=== PATIENT | male | born 1965 | race Caucasian/White ===

== ENCOUNTER 2018-07-30 18:07 | Inpatient (IN) | payer MEDICAID, OTHER ==
--- NOTE | 2018-07-30 18:57 | ED PDOC ---
HPI: Skin/Bite Injury Time Seen by Provider: 07/30/18 18:31 Chief Complaint (Nursing): Abnormal Skin Integrity Chief Complaint (Provider): Gluteal mass History Per: Patient Additional Complaint(s): 53 yo male, no PMH, presents to ED for evaluation of rectal and right buttocks pain x 2 days, associated with fever. Pt reports pain developed 2 days ago, noted upon defecation. Past Medical History Reviewed: Nursing Documentation, Vital Signs Vital Signs: Last Vital Signs Temp 98.8 F 07/30/18 18:10 Pulse 120 H 07/30/18 18:10 Resp 16 07/30/18 18:10 BP 143/91 H 07/30/18 18:10 Pulse Ox 98 07/30/18 18:59 - Medical History PMH: No Chronic Diseases - Surgical History Surgical History: No Surg Hx - Family History Family History: States: No Known Family Hx - Living Arrangements Living Arrangements: With Family - Social History Current smoker - smoking cessation education provided: No Alcohol: None Drugs: Denies - Home Medications Home Medications: Ambulatory Orders Medication Instructions Recorded Azithromycin 250 mg PO DAILY #6 tab 11/13/15 Famotidine [Pepcid] 20 mg PO DAILY PRN #6 tab 11/23/15 Ibuprofen [Motrin] 600 mg PO Q8 PRN #6 tab 11/23/15 - Allergies Allergies/Adverse Reactions: Allergies Allergy/AdvReac Type Severity Reaction Status Date / Time PORK Allergy RASH Verified 07/30/18 18:10 Review of Systems ROS Statement: Except As Marked, All Systems Reviewed And Found Negative Genitourinary Male: Positive for: Other (rectal pain) Physical Exam - Reviewed Nursing Documentation Reviewed: Yes Vital Signs Reviewed: Yes - Physical Exam Appears: Positive for: Well, Non-toxic, No Acute Distress Head Exam: Positive for: ATRAUMATIC, NORMAL INSPECTION, NORMOCEPHALIC Skin: Positive for: Normal Color, Warm, DRY Eye Exam: Positive for: EOMI, Normal appearance, PERRL ENT: Positive for: Normal ENT Inspection Neck: Positive for: Normal, Painless ROM Cardiovascular/Chest: Positive for: Regular Rate, Rhythm Respiratory: Positive for: CNT, Normal Breath Sounds Gastrointestinal/Abdominal: Positive for: Normal Exam, Soft Back: Positive for: Normal Inspection Rectal: Positive for: Tenderness (R gluteal tenderness, mild erythema, no flutuance noted. ) Extremity: Positive for: Normal ROM Neurologic/Psych: Positive for: Alert, Oriented - Laboratory Results Result Diagrams: 07/30/18 19:24 07/30/18 19:24 - ECG O2 Sat by Pulse Oximetry: 98 Medical Decision Making Medical Decision Making: IV access established and treatment initiated with Toradol and IVF Diagnostics ordered WBC resulted 14.9 IV Vacno and Zosyn ordered case endorsed to SAMARIA Bills at [address] results Disposition - Clinical Impression Clinical Impression: Gluteal abscess - Patient ED Disposition Is Patient to be Admitted: Transfer of Care - Disposition Disposition: Transfer of Care Disposition Time: 20:02 Condition: STABLE Forms: [facility] (Nepali)
[2018-07-30 19:29] LABS: BASO % 0.3 % (0.0-2.0); EOS # 0.1 K/uL (0.0-0.7); EOS % 0.5 % (0.0-4.0); HEMOGLOBIN 14.4 g/dL (12.0-18.0); LYMPH # 1.4 K/uL (1.0-4.3); LYMPH % 9.6 % (20.0-40.0); MEAN CELL VOLUME 81.8 fl (80.0-94.0); MEAN CORPUSCULAR HEMOGLOBIN 27.3 pg (27.0-31.0); MEAN CORPUSCULAR HGB CONC 33.4 g/dL (33.0-37.0); MEAN PLATELET VOLUME 8.9 fl (7.2-11.7); MONO # 0.8 K/uL (0.0-0.8); MONO % 5.6 % (0.0-10.0); NEUT # 12.5 K/uL (1.8-7.0); NRBC % 0.1 % (0.0-0.0); PLATELET COUNT 207 K/uL (130-400); RBC 5.28 Mil/uL (4.40-5.90); WHITE BLOOD COUNT 14.9 K/uL (4.8-10.8)
[2018-07-30 19:38] LABS: URINE BILIRUBIN NEGATIVE (NEGATIVE); URINE BLOOD NEGATIVE (NEGATIVE); URINE CLARITY CLEAR (Clear); URINE COLOR YELLOW (YELLOW); URINE GLUCOSE (UA) >=500 mg/dL (Normal); URINE LEUKOCYTE ESTERASE NEG Leu/uL (Negative); URINE PROTEIN 30 mg/dL (NEGATIVE)
[2018-07-30 19:48] LABS: ALB/GLOB RATIO 1.1 (1.0-2.1); BLOOD UREA NITROGEN 15 mg/dl (9-20); CALCIUM 8.9 mg/dL (8.4-10.2); GFR NON-AFRICAN AMERICAN > 60
[2018-07-30 19:54] LABS: ALT/SGPT 23 U/L (21-72); AST/SGOT 24 U/L (17-59)
[2018-07-30] MEDS ORDERED: Piperacillin/Tazobact 3.375 GM in Sodium Chloride 0.9% 100 ML IV STA (20:01)
[2018-07-30] MEDS ORDERED: Piperacillin/Tazobact 3.375 gm Inj IVPB ONE (20:25)
[2018-07-30 20:34] LABS: VENOUS BLOOD GAS BASE EXCESS -0.1 mmol/L (0.0-2.0); VENOUS BLOOD GAS PCO2 36 mmHg (40-60); VENOUS BLOOD GAS PO2 31 mm/Hg (30-55); VENOUS BLOOD PH 7.43 (7.32-7.43)
[2018-07-30] MEDS ORDERED: Sodium Chloride 0.9% 50 ML IV ONE (20:35)
[2018-07-30] MEDS ORDERED: Iohexol 300 100 ML IJ ONE (20:35)
[2018-07-30 20:53] LABS: BANDS 4 % (0-2); HYPOCHROMIC SLIGHT; LYMPHOCYTE 17 % (20-50); MICROCYTOSIS SLIGHT; MONOCYTE 6 % (0-10); NEUTROPHIL 73 % (42-75); PLATELET ESTIMATE NORMAL (NORMAL); TOTAL CELLS COUNTED 100
[2018-07-30 20:54] LABS: SMUDGE CELLS PRESENT
--- NOTE | 2018-07-30 21:35 | ED PDOC ---
- Laboratory Results Result Diagrams: 07/30/18 19:24 07/30/18 19:24 - ECG ECG: Positive for: Viewed By Me (reviewed by ED attending) ECG Rhythm: Positive for: Sinus Rhythm O2 Sat by Pulse Oximetry: 98 - Radiology X-Ray: Viewed By Me X-Ray Interpretation: No Acute Disease, Cardiomegaly - Progress ED Course And Treament: Case endorsed to fiction and nonfiction writer prose from [facility] pending labs, CT Addendum created by Isaac Cunningham MD on 07/30/2018 9:38 PM Eastern Time ([place] & [place]) As stated in the report, the foreign body is long and slender suggests a thin nail or dense object. As stated in the report, the foreign body is 3 cm in length and approximately 2.5 mm at the widest but does taper to a thinner diameter laterally. Initial Report created on 07/30/2018 9:26 PM Eastern Time ([place] & [place]) EXAM: CT Abdomen and Pelvis With Intravenous Contrast EXAM DATE/TIME: 07/30/2018 6:54 PM CLINICAL HISTORY: 53 years old, male; Signs and symptoms; Other: RT buutock swelling; Additional info: R gluteal abscess TECHNIQUE: Axial computed tomography images of the abdomen and pelvis with intravenous contrast. All CT scans at this facility use at least one of these dose optimization techniques: automated exposure control; mA and/or kV adjustment per patient size (includes targeted exams where dose is matched to clinical indication); or iterative reconstruction. Coronal and sagittal reformatted images were created and reviewed. CONTRAST: 95 ml of [id number] administered intravenously. COMPARISON: No relevant prior studies available. FINDINGS: Lower thorax: No acute findings. ABDOMEN: Liver: Normal. No mass. Gallbladder and bile ducts: The gallbladder is contracted with no stones. Pancreas: Normal. No ductal dilation. Spleen: Normal. No splenomegaly. Adrenals: Normal. No mass. Kidneys and ureters: Normal. No hydronephrosis. Stomach and bowel: Normal. No obstruction. No mucosal thickening. Appendix: A normal appendix is seen. PELVIS: Bladder: Small fat filled bilateral inguinal hernias with urinary bladder protruding toward the orifice of the left Reproductive: Unremarkable as visualized. ABDOMEN and PELVIS: Intraperitoneal space: Normal. No free air. No significant fluid collection. Bones/joints: No acute fracture. No dislocation. Soft tissues: Pockets of gas with soft tissue confluence and surrounding induration in the medial right buttocks consistent with site of developing abscess without a mature wall at this time. Centered in this, there is a linear radiopaque foreign body which measures approximately 3.0 cm in length and is approximately 2.5 mm in diameter. The area of developing abscess measures approximately 4.1 x 3.0 x 3.7 cm. Vasculature: Normal. No abdominal aortic aneurysm. Lymph nodes: Numerous small periaortic retroperitoneal nodes which are upper normal. Small bilateral external iliac nodes which aren't borderline and right greater than left measuring up to 18 x 10 x 21 mm. IMPRESSION: 1. Site of developing abscess in the medial right buttocks lateral and caudal to the right ischial tuberosity. No mature wall is evident at this time and only surrounding subcutaneous induration is noted. Centrally, there is a linear radiopaque foreign body measuring approximately 3.0 cm length approximately 2.5 mm in diameter although appears to taper to a thinner diameter at the lateral aspect. 2. Small bilateral inguinal hernias. 3. Borderline right external iliac adenopathy. There are some left external iliac nodes which are within normal limits and upper normal periaortic retroperitoneal nodes in the abdomen. Case discussed with Dr. Tena, neurosurgical nurse on-call, regarding consult. Recommends warm compress application in ED Case discussed with Dr. Eid, hospitalist on-call, for admission Disposition - Clinical Impression Clinical Impression: Cellulitis of right buttock, Foreign body (FB) in soft tissue, Hyperglycemia, Sepsis - POA Present On Arrival: None - Disposition Disposition: Admitted as In-Patient Disposition Time: 21:54 Condition: FAIR
[2018-07-30] MEDS ORDERED: Vancomycin 1 g Inj ONE (22:19)
--- NOTE | 2018-07-30 22:49 | CP.PCM.HP ---
History of Present Illness - History of Present Illness History of Present Illness: CC: Right buttock pain HPI: 53 y/o man w/ no pmh presents for right buttock pain. Patient reports pain started yesterday, sharp in nature, non-radiating, w/ minimal relief w/ motrin. Patient reports burning bowel movement the previous day which he thought was a hemorrhoid, but burning went away. Patient reports associated fever of 100.4F but denies trauma, fall, chest pain, SOB, abdominal pain, nausea , vomiting, diarrhea, or dysuria. ED course: vitals: 101.6F, 104 beats/min, 137/68 mm Hg, resp 18, O2 98% room air CBC: 14.9>14.4/43.2<207 CMP: 136/4.0, 100/28, 15/0.9, glucose 212, AST 24, ALT 23, alk phos 56 VBG: pO2 31, pH 7.43, pCO2 36, HCO3 23.9, lactate 1.8 UA: glucose >500, trace ketones, neg nitrates and neg leukocyte esterase CXR: no active disease process CT abdomen/pelvis: (vrads) Site of developing abscess in the medial right buttocks lateral and caudal to the right ischial tuberosity. No mature wall is evident at this time and only surrounding subcutaneous induration is noted. Centrally, there is a linear radiopaque foreign body measuring approximately 3.0 cm length approximately 2.5 mm in diameter although appears to taper to a thinner diameter at the lateral aspect. Small bilateral inguinal hernias. Borderline right external iliac adenopathy. There are some left external iliac nodes which are within normal limits and upper normal periaortic retroperitoneal nodes in the abdomen. Tylenol 975 mg PO once Toradol 30 mg IV once Vancomycin 1 gm IV Zosyn 3,375 gm IV PMD: none PMH: none meds: none allergies: pork PSH: none Fam: mother and father have HTN, DM2 SOC: denies smoking, alcohol, and drugs ROS: 12 points assessed and negative unless otherwise reported in HPI Present on Admission - Present on Admission Any Indicators Present on Admission: No History of DVT/PE: No History of Uncontrolled Diabetes: No Urinary Catheter: No Decubitus Ulcer Present: No Review of Systems - Review of Systems All systems: reviewed and no additional remarkable complaints except - Constitutional Constitutional: As Per HPI, Fever, Headache. absent: Chills - EENT Eyes: absent: Change in Vision - Cardiovascular Cardiovascular: absent: Chest Pain - Respiratory Respiratory: absent: Cough, Dyspnea - Gastrointestinal Gastrointestinal: absent: Abdominal Pain, Diarrhea, Hematochezia, Melena, Nausea , Vomiting - Genitourinary Genitourinary: absent: Dysuria - Integumentary Integumentary: As Per HPI - Neurological Neurological: absent: Dizziness, Numbness, Headaches Past Patient History - Past Social History Alcohol: None Drugs: Denies - PSYCHIATRIC Hx Substance Use: No - SURGICAL HISTORY Hx Surgeries: No - ANESTHESIA Hx Anesthesia: No Meds Allergies/Adverse Reactions: Allergies Allergy/AdvReac Type Severity Reaction Status Date / Time PORK Allergy RASH Verified 07/30/18 18:10 Physical Exam - Constitutional Appears: Non-toxic, No Acute Distress - Head Exam Head Exam: ATRAUMATIC, NORMAL INSPECTION, NORMOCEPHALIC - Eye Exam Eye Exam: EOMI, Normal appearance, PERRL - ENT Exam ENT Exam: Mucous Membranes Moist - Neck Exam Neck exam: Positive for: Full Rom. Negative for: Tenderness - Respiratory Exam Respiratory Exam: Clear to Auscultation Bilateral. absent: Decreased Breath Sounds, Rales, Rhonchi, Wheezes, Respiratory Distress - Cardiovascular Exam Cardiovascular Exam: REGULAR RHYTHM, RRR. absent: Tachycardia - GI/Abdominal Exam GI & Abdominal Exam: Normal Bowel Sounds, Soft. absent: Distended, Tenderness - Rectal Exam Additional comments: indurated, warm, erythematous, tender lower right buttock, no drainage, left side normal - Extremities Exam Extremities exam: Positive for: normal inspection. Negative for: calf tenderness, pedal edema, tenderness - Neurological Exam Neurological exam: Alert, Oriented x3 - Skin Skin Exam: Dry, Normal Color, Warm Results - Vital Signs Recent Vital Signs: Last Vital Signs Temp 101.6 F H 07/30/18 21:09 Pulse 104 H 07/30/18 20:38 Resp 18 07/30/18 20:38 BP 137/68 07/30/18 20:38 Pulse Ox 98 07/30/18 22:33 - Labs Result Diagrams: 07/30/18 19:24 07/30/18 19:24 Labs: Laboratory Results - last 24 hr 07/30/18 07/30/18 07/30/18 19:24 19:24 19:24 WBC 14.9 H D RBC 5.28 Hgb 14.4 Hct 43.2 MCV 81.8 D MCH 27.3 MCHC 33.4 RDW 14.0 Plt Count 207 MPV 8.9 Neut % (Auto) 84.0 H Lymph % (Auto) 9.6 L [place] % (Auto) 5.6 Eos % (Auto) 0.5 Baso % (Auto) 0.3 Neut # (Auto) 12.5 H Lymph # (Auto) 1.4 [place] # (Auto) 0.8 Eos # (Auto) 0.1 Baso # (Auto) 0.0 Neutrophils % (Manual) 73 Band Neutrophils % 4 H Lymphocytes % (Manual) 17 L Monocytes % (Manual) 6 Smudge Cells Present Platelet Estimate Normal Hypochromasia (manual) Slight Microcytosis (manual) Slight pO2 VBG pH VBG pCO2 VBG HCO3 VBG Total CO2 VBG O2 Sat (Calc) VBG Base Excess VBG Potassium Glucose Lactate FiO2 Sodium 136 Potassium 4.0 Chloride 100 Carbon Dioxide 28 Anion Gap 12 BUN 15 Creatinine 0.9 Est GFR ( Amer) > 60 Est GFR (Non-Af Amer) > 60 Random Glucose 212 H Calcium 8.9 Total Bilirubin 0.7 AST 24 ALT 23 Alkaline Phosphatase 56 Total Protein 7.6 Albumin 4.0 Globulin 3.6 Albumin/Globulin Ratio 1.1 Venous Blood Potassium Urine Color Yellow Urine Clarity Clear Urine pH 6.0 Ur Specific [place] 1.026 Urine Protein 30 Urine Glucose (UA) >=500 Urine Ketones Trace Urine Blood Negative Urine Nitrate Negative Urine Bilirubin Negative Urine Urobilinogen 2.0 Ur Leukocyte Esterase Neg Urine RBC (Auto) 3 Urine Microscopic WBC 1 07/30/18 20:30 WBC RBC Hgb Hct MCV MCH MCHC RDW Plt Count MPV Neut % (Auto) Lymph % (Auto) [place] % (Auto) Eos % (Auto) Baso % (Auto) Neut # (Auto) Lymph # (Auto) [place] # (Auto) Eos # (Auto) Baso # (Auto) Neutrophils % (Manual) Band Neutrophils % Lymphocytes % (Manual) Monocytes % (Manual) Smudge Cells Platelet Estimate Hypochromasia (manual) Microcytosis (manual) pO2 31 VBG pH 7.43 VBG pCO2 36 L VBG HCO3 23.9 VBG Total CO2 25.0 VBG O2 Sat (Calc) 70.4 H VBG Base Excess -0.1 L VBG Potassium 3.6 Glucose 212 H Lactate 1.8 FiO2 21.0 Sodium 131.0 L Potassium Chloride 101.0 Carbon Dioxide Anion Gap BUN Creatinine Est GFR ( Amer) Est GFR (Non-Af Amer) Random Glucose Calcium Total Bilirubin AST ALT Alkaline Phosphatase Total Protein Albumin Globulin Albumin/Globulin Ratio Venous Blood Potassium 3.6 Urine Color Urine Clarity Urine pH Ur Specific [place] Urine Protein Urine Glucose (UA) Urine Ketones Urine Blood Urine Nitrate Urine Bilirubin Urine Urobilinogen Ur Leukocyte Esterase Urine RBC (Auto) Urine Microscopic WBC Assessment & Plan (1) Cellulitis of right buttock Status: Acute (2) Sepsis Status: Acute - Assessment and Plan (Free Text) Assessment: 53 y/o man w/ no pmh presents for right buttock pain Plan: Right buttock pain - most likely due to developing abscess of lower right buttock - febirle, tachycardic, normotensive - 101.6F, 104 beats/min, 137/68 mm Hg, resp 18, O2 98% room air - CBC: 14.9>14.4/43.2<207 - CMP: 136/4.0, 100/28, 15/0.9, glucose 212, AST 24, ALT 23, alk phos 56 - VBG: pO2 31, pH 7.43, pCO2 36, HCO3 23.9, lactate 1.8 - UA: glucose >500, trace ketones, neg nitrates and neg leukocyte esterase - CXR: no active disease process - CT abdomen/pelvis: (vrads) Site of developing abscess in the medial right buttocks lateral and caudal to the right ischial tuberosity. No mature wall is evident at this time and only surrounding subcutaneous induration is noted. Centrally, there is a linear radiopaque foreign body measuring approximately 3.0 cm length approximately 2.5 mm in diameter although appears to taper to a thinner diameter at the lateral aspect. Small bilateral inguinal hernias. Borderline right external iliac adenopathy. There are some left external iliac nodes which are within normal limits and upper normal periaortic retroperitoneal nodes in the abdomen. - surgery consult ordered - Tylenol 975 mg PO once - Toradol 30 mg IV once - Vancomycin 1 gm IV - Zosyn 3,375 gm IV - c/w vancomycin 1 gm IV Q12h - c/w zosyn 3.375 gm IV Q8h - tylenol for mild pain - motrin for moderate pain - toradol for severe pain - admit to Med/Surg - monitor for acute changes Sepsis - patient meets sepsis criteria; febrile, tachycardic, WBC 14.9, source of infection - normotensive - monitor for acute changes Prophylactic measures -DVT: lovenox 40 mg SC daily
--- NOTE | 2018-07-30 22:53 | CP.PCM.CON ---
History of Present Illness - History of Present Illness History of Present Illness: GENERAL SURGERY CONSULT NOTE FOR DR. CLARKE 53yo M with PMHx of hemorrhoids presents to the ED with right buttock pain and swelling for 2 days. Two days ago, he was attempting to have a BM when he began having rectal burning. The next day, he noticed swelling in the right buttock area near the rectum but the rectal burning resolved. Pt reports fevers for about 3 days along with GODINEZ. He is having normal BMs, last was today. Denies diarrhea. No recent bloody stools. Did have small amount of blood in stool several months ago. Never had a colonoscopy. Pt states that he does not follow up with a doctor. In the ED, pt found to be febrile with leukocytosis and CT showed developing abscess with linear foreign body in the right soraida-rectal area. Pt states that he has never injected himself in the buttock area, never put anything in his rectum besides the suppository, never had any trauma to the area , never had any surgery in the area. When asked about IM medications in the buttock, pt states that 14 years ago, he had vaccinations in the buttock in his home country of [place]. PMHx: states has high BP but not high enough to require medication Surgeries: none Allergies: pork Medications: occasional suppository for hemorrhoids, pt unsure of name Social history: denies etoh, illicit drug use or tobacco use Review of Systems - Review of Systems All systems: reviewed and no additional remarkable complaints except (as per HPI ) Past Patient History - Past Social History Alcohol: None Drugs: Denies - PSYCHIATRIC Hx Substance Use: No - SURGICAL HISTORY Hx Surgeries: No - ANESTHESIA Hx Anesthesia: No Meds Home Medications: Home Medication List Medication Instructions Recorded Confirmed Type Amoxicillin/Clavulanate [Augmentin 1 tab PO Q12H #14 tab 08/02/18 Rx 875 MG-125 MG] Clindamycin [Cleocin] 300 mg PO Q8H #21 cap 08/02/18 Rx Ibuprofen [Motrin Tab] 600 mg PO Q6H PRN #20 tab 08/02/18 Rx metFORMIN [glucOPHAGE] 500 mg PO BID #60 tab 08/02/18 Rx Allergies/Adverse Reactions: Allergies Allergy/AdvReac Type Severity Reaction Status Date / Time PORK Allergy RASH Verified 07/30/18 18:10 - Medications Medications: Current Medications Acetaminophen (Tylenol 325mg Tab) 650 mg PO Q6 PRN PRN Reason: Pain, Mild (1-3) Acetaminophen (Tylenol 325mg Tab) 650 mg PO Q6 PRN PRN Reason: Fever >100.4 F Enoxaparin Sodium (Lovenox) 40 mg SC DAILY FLORIAN PRN Reason: Protocol Vancomycin HCl 1 gm/ Sodium (Chloride) 250 mls @ 166.667 mls/hr IVPB Q12 FLORIAN PRN Reason: Protocol Piperacillin Sod/Tazobactam (Sod 3.375 gm/ Sodium Chloride) 100 mls @ 100 mls/ hr IVPB Q8 FLORIAN PRN Reason: Protocol Ibuprofen (Motrin Tab) 600 mg PO Q6H PRN PRN Reason: Pain, moderate (4-7) Physical Exam - Constitutional Appears: Well, Non-toxic, No Acute Distress - Head Exam Head Exam: ATRAUMATIC, NORMAL INSPECTION - Eye Exam Eye Exam: EOMI, Normal appearance - Respiratory Exam Respiratory Exam: NORMAL BREATHING PATTERN. absent: Respiratory Distress - Cardiovascular Exam Cardiovascular Exam: +S1, +S2 - GI/Abdominal Exam GI & Abdominal Exam: Soft. absent: Distended, Firm, Guarding, Rebound, Rigid, Tenderness - Rectal Exam Rectal Exam: Deferred (deferred due to foreign body/possible needle in soraida- rectal area) Additional comments: Right soraida-rectal area: some induration, no fluctuance, no erythema, no drainage , no crepitus, very mild tenderness to area - Neurological Exam Neurological exam: Alert, CN II-XII Intact, Oriented x3 - Psychiatric Exam Psychiatric exam: Normal Affect, Normal Mood - Skin Skin Exam: Dry, Warm Results - Vital Signs Recent Vital Signs: Last Vital Signs Temp 99.0 F 07/30/18 22:09 Pulse 104 H 07/30/18 20:38 Resp 18 07/30/18 20:38 BP 137/68 07/30/18 20:38 Pulse Ox 98 07/30/18 22:33 - Labs Result Diagrams: 08/02/18 04:00 08/02/18 05:50 Labs: Laboratory Results - last 24 hr 07/30/18 07/30/18 07/30/18 19:24 19:24 19:24 WBC 14.9 H D RBC 5.28 Hgb 14.4 Hct 43.2 MCV 81.8 D MCH 27.3 MCHC 33.4 RDW 14.0 Plt Count 207 MPV 8.9 Neut % (Auto) 84.0 H Lymph % (Auto) 9.[address] [facility] % (Auto) 5.6 Eos % (Auto) 0.5 Baso % (Auto) 0.3 Neut # (Auto) 12.5 H Lymph # (Auto) 1.4 [facility] # (Auto) 0.8 Eos # (Auto) 0.1 Baso # (Auto) 0.0 Neutrophils % (Manual) 73 Band Neutrophils % 4 H Lymphocytes % (Manual) 17 L Monocytes % (Manual) 6 Smudge Cells Present Platelet Estimate Normal Hypochromasia (manual) Slight Microcytosis (manual) Slight pO2 VBG pH VBG pCO2 VBG HCO3 VBG Total CO2 VBG O2 Sat (Calc) VBG Base Excess VBG Potassium Glucose Lactate FiO2 Sodium 136 Potassium 4.0 Chloride 100 Carbon Dioxide 28 Anion Gap 12 BUN 15 Creatinine 0.9 Est GFR ( Amer) > 60 Est GFR (Non-Af Amer) > 60 Random Glucose 212 H Calcium 8.9 Total Bilirubin 0.7 AST 24 ALT 23 Alkaline Phosphatase 56 Total Protein 7.6 Albumin 4.0 Globulin 3.6 Albumin/Globulin Ratio 1.1 Venous Blood Potassium Urine Color Yellow Urine Clarity Clear Urine pH 6.0 Ur Specific [place] 1.026 Urine Protein 30 Urine Glucose (UA) >=500 Urine Ketones Trace Urine Blood Negative Urine Nitrate Negative Urine Bilirubin Negative Urine Urobilinogen 2.0 Ur Leukocyte Esterase Neg Urine RBC (Auto) 3 Urine Microscopic WBC 1 07/30/18 20:30 WBC RBC Hgb Hct MCV MCH MCHC RDW Plt Count MPV Neut % (Auto) Lymph % (Auto) [facility] % (Auto) Eos % (Auto) Baso % (Auto) Neut # (Auto) Lymph # (Auto) [facility] # (Auto) Eos # (Auto) Baso # (Auto) Neutrophils % (Manual) Band Neutrophils % Lymphocytes % (Manual) Monocytes % (Manual) Smudge Cells Platelet Estimate Hypochromasia (manual) Microcytosis (manual) pO2 31 VBG pH 7.43 VBG pCO2 36 L VBG HCO3 23.9 VBG Total CO2 25.0 VBG O2 Sat (Calc) 70.4 H VBG Base Excess -0.1 L VBG Potassium 3.6 Glucose 212 H Lactate 1.8 FiO2 21.0 Sodium 131.0 L Potassium Chloride 101.0 Carbon Dioxide Anion Gap BUN Creatinine Est GFR ( Amer) Est GFR (Non-Af Amer) Random Glucose Calcium Total Bilirubin AST ALT Alkaline Phosphatase Total Protein Albumin Globulin Albumin/Globulin Ratio Venous Blood Potassium 3.6 Urine Color Urine Clarity Urine pH Ur Specific [place] Urine Protein Urine Glucose (UA) Urine Ketones Urine Blood Urine Nitrate Urine Bilirubin Urine Urobilinogen Ur Leukocyte Esterase Urine RBC (Auto) Urine Microscopic WBC Assessment & Plan - Assessment and Plan (Free Text) Assessment: 53yo M with PMHx of hemorrhoids presents with right buttock pain and found to have developing abscess with linear foreign body in the right soraida-rectal area. - Febrile 101.6 - Leukocytosis 14.9 - Hyperglycemia - CT: Site of developing abscess in the medial right buttocks lateral and caudal to the right ischial tuberosity. No mature wall is evident at this time and only surrounding subcutaneous induration is noted. Centrally, there is a linear radiopaque foreign body measuring ~3.0 cm length x ~2.5 mm in diameter although appears to taper to a thinner diameter at the lateral aspect. Small bilateral inguinal hernias. - IV Antibiotics - Warm compresses to indurated area - Possible I&D - NPO past midnight in case OR - Discussed plan with Dr. Colin Tena PGY-4
[2018-07-31] MEDS ORDERED: Pneumococcal 23-Valent Vaccine IM ONE (00:06)
[2018-07-31] MEDS: Piperacillin/Tazobact 3.375 GM in Sodium Chloride 0.9% 100 ML IVPB SCH ×3 (01:09→16:42)
[2018-07-31] MEDS: Sodium Chloride 0.9% 1,000 ML IV SCH ×4 (01:12→23:00)
[2018-07-31 06:38] LABS: BASO # 0.1 K/uL (0.0-0.2); BASO % 0.3 % (0.0-2.0); EOS # 0.2 K/uL (0.0-0.7); EOS % 1.2 % (0.0-4.0); HEMOGLOBIN 14.1 g/dL (12.0-18.0); LYMPH # 1.8 K/uL (1.0-4.3); LYMPH % 10.4 % (20.0-40.0); MEAN CELL VOLUME 82.3 fl (80.0-94.0); MEAN CORPUSCULAR HEMOGLOBIN 27.5 pg (27.0-31.0); MEAN CORPUSCULAR HGB CONC 33.4 g/dL (33.0-37.0); MEAN PLATELET VOLUME 8.2 fl (7.2-11.7); MONO # 1.4 K/uL (0.0-0.8); MONO % 7.9 % (0.0-10.0); NEUT # 13.7 K/uL (1.8-7.0); NEUT % 80.2 % (50.0-75.0); RBC 5.13 Mil/uL (4.40-5.90); RED CELL DISTRIBUTION WIDTH 13.7 % (11.5-14.5); WHITE BLOOD COUNT 17.1 K/uL (4.8-10.8)
[2018-07-31 07:05] LABS: ALBUMIN 3.4 g/dL (3.5-5.0); ALT/SGPT 24 U/L (21-72); AST/SGOT 17 U/L (17-59); BLOOD UREA NITROGEN 11 mg/dl (9-20); CALCIUM 8.7 mg/dL (8.4-10.2); GFR NON-AFRICAN AMERICAN > 60
--- NOTE | 2018-07-31 07:43 | CARD ---
APPROVED REPORT Date of service: 07/30/2018 EKG Measurement Heart [id number] <Conclusion> Normal sinus rhythm Voltage criteria for left ventricular hypertrophy Nonspecific T wave abnormality Abnormal ECG
[2018-07-31] MEDS ORDERED: Enoxaparin 40 mg Syringe SC SCH (09:00)
--- NOTE | 2018-07-31 09:27 | CT ---
Date of service: 07/30/2018 PROCEDURE: CT Abdomen and Pelvis with contrast HISTORY: R gluteal abscess COMPARISON: None. TECHNIQUE: Contrast dose: 95 mL of Omnipaque 300 Radiation dose: Total exam DLP = 681 mGy-cm. This CT exam was performed using one or more of the following dose reduction techniques: Automated exposure control, adjustment of the mA and/or kV according to patient size, and/or use of iterative reconstruction technique. FINDINGS: LOWER THORAX: Unremarkable. LIVER: Unremarkable. No gross lesion or ductal dilatation. GALLBLADDER AND BILE DUCTS: Unremarkable. PANCREAS: Unremarkable. No gross lesion or ductal dilatation. SPLEEN: Unremarkable. ADRENALS: Unremarkable. No mass. KIDNEYS AND URETERS: Unremarkable. No hydronephrosis. No solid mass. VASCULATURE: Unremarkable. No aortic aneurysm. BOWEL: Unremarkable. No obstruction. No gross mural thickening. APPENDIX: Normal appendix. PERITONEUM: Unremarkable. No free fluid. No free air. LYMPH NODES: A right groin normal size asymmetrical lymph node nonspecific is present. No enlarged lymph nodes. BLADDER: Unremarkable. REPRODUCTIVE: Unremarkable. BONES: No acute fracture. OTHER FINDINGS: In the medial right buttocks, there is mixture of gas and fluid and surrounding fat induration compatible with a developing abscess here. Within this collection a thin linear radiopaque foreign body approximately 3 cm in length and 1 mm in width is noted. The entire collection is approximately 4 cm in rounded diameter. Is at the level of the ischial tuberosities. No contiguous osseous involvement noted. No gross mature wall to it noted IMPRESSION: Medial right buttock developing abscess with foreign body-as detailed above. Follow-up recommended. Concordant results (preliminary interpretation) provided by [employer].
--- NOTE | 2018-07-31 10:18 | CP.PCM.PN ---
Subjective - Date & Time of Evaluation Date of Evaluation: 07/31/18 Time of Evaluation: 08:00 - Subjective Subjective: Pt is seen and examined at bed side with Dr Mendoza. Pt slept well, with no acute event overnight. Pt state that he had a fever but feel improved. He state pain is controlled with medication but chore tender to palpate or when he sit on toilet. Pt denies any n/v SOB, chest pain, abd pain, dysuria, polyuria, Diarrhea or constipation. Objective - Vital Signs/Intake and Output Vital Signs (last 24 hours): Temp Pulse Resp BP Pulse Ox 97.8 F 88 18 106/71 98 07/31/18 08:39 07/31/18 08:39 07/31/18 08:39 07/31/18 08:39 07/31/18 08:39 - Medications Medications: Current Medications Acetaminophen (Tylenol 325mg Tab) 650 mg PO Q6 PRN PRN Reason: Pain, Mild (1-3) Last Admin: 07/31/18 06:17 Dose: 650 mg Acetaminophen (Tylenol 325mg Tab) 650 mg PO Q6 PRN PRN Reason: Fever >100.4 F Docusate Sodium (Colace) 100 mg PO BID [facility] Last Admin: 07/31/18 09:41 Dose: 100 mg Enoxaparin Sodium (Lovenox) 40 mg SC DAILY [facility] PRN Reason: Protocol Vancomycin HCl 1 gm/ Sodium (Chloride) 250 mls @ 166.667 mls/hr IVPB Q12 [facility] PRN Reason: Protocol Piperacillin Sod/Tazobactam (Sod 3.375 gm/ Sodium Chloride) 100 mls @ 100 mls/ hr IVPB Q8 [facility] PRN Reason: Protocol Last Admin: 07/31/18 09:32 Dose: 100 mls/hr Sodium Chloride (Sodium Chloride 0.9%) 1,000 mls @ 125 mls/hr IV .Q8H [facility] Last Admin: 07/31/18 01:12 Dose: 125 mls/hr Ibuprofen (Motrin Tab) 600 mg PO Q6H PRN PRN Reason: Pain, moderate (4-7) Last Admin: 07/31/18 01:11 Dose: 600 mg Ketorolac Tromethamine (Toradol) 30 mg IVP Q6 PRN PRN Reason: Pain, severe (8-10) Last Admin: 07/31/18 09:33 Dose: 30 mg Sennosides (Senokot Tab) 8.6 mg PO HS [facility] - Labs Labs: 07/31/18 05:30 07/31/18 05:30 - Constitutional Appears: Well, Non-toxic, No Acute Distress - Head Exam Head Exam: ATRAUMATIC, NORMAL INSPECTION, NORMOCEPHALIC - Eye Exam Eye Exam: EOMI, Normal appearance, PERRL Pupil Exam: NORMAL ACCOMODATION, PERRL - ENT Exam ENT Exam: Mucous Membranes Moist, Normal Exam - Neck Exam Neck Exam: Full ROM, Normal Inspection - Respiratory Exam Respiratory Exam: Clear to Ausculation Bilateral, NORMAL BREATHING PATTERN - Cardiovascular Exam Cardiovascular Exam: REGULAR RHYTHM, +S1, +S2 - GI/Abdominal Exam GI & Abdominal Exam: Soft, Normal Bowel Sounds - Rectal Exam Additional comments: skin Induration was noted on Right buttock with warm and tenderness. - Extremities Exam Extremities Exam: Full ROM, Normal Capillary Refill, Normal Inspection - Back Exam Back Exam: NORMAL INSPECTION. absent: CVA tenderness (L), CVA tenderness (R) - Neurological Exam Neurological Exam: Alert, Awake Assessment and Plan - Assessment and Plan (Free Text) Assessment: Pt is a 53 yo male with No PMH presented with buttock pain, was admitted for drainage of abscess. Cellulites /Abscess on Right buttock Pt complain of buttock pain Ct scan demonstrate an abscess with foraging body Skin induration plus tenderness noted upon palpation of the area Vitals noted for Fevers and tackycardia Plan NPO I&D by surgery continue Abx Vanco + Zosyn IV Acetomenophine PRN fever Motrin PRN pain moderate ketorolac PRn Sever pain F/U vitals follow up after surgeon recommendation Sepsis Pt have Fever + tachycardia and source of infection Plan Continue abx Monitor vitals Continue Iv fluid Monitor for any acute changes Uncontrolled DM Pt glucose level 212->169 Plan Will order H1AC DVT prophylaxis Lovenox 40
--- NOTE | 2018-07-31 10:32 | RAD ---
Date of service: 07/30/2018 HISTORY: admit COMPARISON: No prior. FINDINGS: LUNGS: The lungs are well inflated and clear. PLEURA: No significant pleural effusion identified, no pneumothorax apparent. CARDIOVASCULAR: Normal. OSSEOUS STRUCTURES: No significant abnormalities. VISUALIZED UPPER ABDOMEN: Normal. OTHER FINDINGS: None. IMPRESSION: No acute findings.
[2018-07-31] MEDS ORDERED: Midazolam 2 MG/2 ML VIAL ONE (12:06)
[2018-07-31] MEDS ORDERED: ePHEDrine 50 mg/ml Inj ONE (12:06)
[2018-07-31] MEDS ORDERED: Propofol 10 mg/ml Inj (20 ML) ONE ×2 (12:06→14:10)
[2018-07-31] MEDS ORDERED: Succinylcholine 200 mg/10 ml Inj IV ONE (12:07)
[2018-07-31 12:14] LABS: INR 1.1; PROTHROMBIN TIME 12.4 Seconds (9.8-13.1)
[2018-07-31 12:16] LABS: PARTIAL THROMBOPLASTIN TIME 30.9 Seconds (25.6-37.1)
[2018-07-31] MEDS ORDERED: Ketamine 50 mg/ml Inj (10 ml) ONE (14:10)
[2018-07-31] MEDS ORDERED: Sodium Chloride 0.9% 10 ML IV ONE (14:14)
[2018-07-31] MEDS ORDERED: Oxycodone/Acetaminophen 5/325 mg Tab PO PRN (15:02)
--- NOTE | 2018-07-31 15:05 | PCM.SURG1 ---
Surgeon's Initial Post Op Note - Surgeon's Notes Surgeon: Dr. Shaw Library Circulation Clerk: Dr. Biggs PGY-3 Type of Anesthesia: IV Sedation Anesthesia Administered By: Dr. Pond Pre-Operative Diagnosis: R Gluteal Abscess Operative Findings: 20cc of purulent output expressed from abscess, no foreign body found Post-Operative Diagnosis: Same Operation Performed: Incision & Drainage of R gluteal abscess Specimen/Specimens Removed: none Estimated Blood Loss: EBL {In ML}: 5 Blood Products Given: N/A Drains Used: Stephanie Post-Op Condition: Good Date of Surgery/Procedure: 07/31/18 Time of Surgery/Procedure: 15:05
[2018-07-31] MEDS ORDERED: HYDROmorphone 0.5 mg/0.5 ml ISec IVP PRN (15:10)
[2018-08-01] MEDS: Piperacillin/Tazobact 3.375 GM in Sodium Chloride 0.9% 100 ML IVPB SCH ×3 (00:54→16:14)
--- NOTE | 2018-08-01 07:42 | CP.PCM.PN ---
Subjective - Date & Time of Evaluation Date of Evaluation: 08/01/18 Time of Evaluation: 07:20 - Subjective Subjective: General Surgery Pt Seen and examined. Febrile to 101.1 overnight. Feeling better today. No new complaints Objective - Vital Signs/Intake and Output Vital Signs (last 24 hours): Temp Pulse Resp BP Pulse Ox 99 F 102 H 18 112/60 98 07/31/18 23:50 07/31/18 23:50 07/31/18 23:50 07/31/18 23:50 07/31/18 23:50 - Medications Medications: Current Medications Acetaminophen (Tylenol 325mg Tab) 650 mg PO Q6 PRN PRN Reason: Pain, Mild (1-3) Last Admin: 07/31/18 16:38 Dose: 650 mg Acetaminophen (Tylenol 325mg Tab) 650 mg PO Q6 PRN PRN Reason: Fever >100.4 F Docusate Sodium (Colace) 100 mg PO BID [facility] Last Admin: 07/31/18 16:36 Dose: 100 mg Enoxaparin Sodium (Lovenox) 40 mg SC DAILY [facility] PRN Reason: Protocol Vancomycin HCl 1 gm/ Sodium (Chloride) 250 mls @ 166.667 mls/hr IVPB Q12 [facility] PRN Reason: Protocol Last Admin: 07/31/18 21:55 Dose: 166.667 mls/hr Piperacillin Sod/Tazobactam (Sod 3.375 gm/ Sodium Chloride) 100 mls @ 100 mls/ hr IVPB Q8 [facility] PRN Reason: Protocol Last Admin: 08/01/18 00:54 Dose: 100 mls/hr Sodium Chloride (Sodium Chloride 0.9%) 1,000 mls @ 125 mls/hr IV .Q8H [facility] Last Admin: 07/31/18 22:02 Dose: 125 mls/hr Ibuprofen (Motrin Tab) 600 mg PO Q6H PRN PRN Reason: Pain, moderate (4-7) Last Admin: 07/31/18 21:56 Dose: 600 mg Ketorolac Tromethamine (Toradol) 30 mg IVP Q6 PRN PRN Reason: Pain, severe (8-10) Last Admin: 07/31/18 09:33 Dose: 30 mg Oxycodone/Acetaminophen (Percocet 5/325 Mg Tab) 1 tab PO Q4 PRN PRN Reason: Pain, moderate (4-7) Stop: 08/03/18 15:03 Sennosides (Senokot Tab) 8.6 mg PO HS [facility] Last Admin: 07/31/18 22:01 Dose: Not Given - Labs Labs: 07/31/18 05:30 07/31/18 05:30 PT 12.4 Seconds (9.8-13.1) 07/31/18 12:01 INR 1.1 07/31/18 12:01 APTT 30.9 Seconds (25.6-37.1) 07/31/18 12:01 - Constitutional Appears: Non-toxic, No Acute Distress - Head Exam Head Exam: ATRAUMATIC, NORMOCEPHALIC - Eye Exam Eye Exam: EOMI. absent: Scleral icterus - Neck Exam Neck Exam: Full ROM. absent: Tenderness - Respiratory Exam Respiratory Exam: NORMAL BREATHING PATTERN. absent: Respiratory Distress - Cardiovascular Exam Cardiovascular Exam: Tachycardia, +S1, +S2 - GI/Abdominal Exam GI & Abdominal Exam: Soft. absent: Distended, Tenderness - Rectal Exam Additional comments: dressing with some spots of drainage, liz in place. - Extremities Exam Extremities Exam: absent: Calf Tenderness, Pedal Edema - Neurological Exam Neurological Exam: Alert, Awake, Oriented x3 - Skin Skin Exam: Dry, Warm Assessment and Plan - Assessment and Plan (Free Text) Assessment: 53M with R Gluteal Abscess, POD#1 s/p R Gluteal Abscess incision and drainage Plan: Drain to remain in place until it falls out or is removed by Dr. Shaw in the office in 1 week Need ID to recommend home antibiotics. F/U with a PMD for glucose monitoring and control. Will D/W Dr. Colin Rivera PGY4
[2018-08-01] MEDS: Enoxaparin 40 mg Syringe SC SCH (08:13)
[2018-08-01] MEDS: Sodium Chloride 0.9% 1,000 ML IV SCH ×3 (08:15→23:15)
[2018-08-01 09:13] LABS: BASO # 0.1 K/uL (0.0-0.2); BASO % 0.4 % (0.0-2.0); EOS # 0.2 K/uL (0.0-0.7); EOS % 1.8 % (0.0-4.0); HEMOGLOBIN 14.3 g/dL (12.0-18.0); LYMPH # 2.1 K/uL (1.0-4.3); LYMPH % 16.6 % (20.0-40.0); MEAN CELL VOLUME 81.6 fl (80.0-94.0); MEAN CORPUSCULAR HEMOGLOBIN 27.5 pg (27.0-31.0); MEAN CORPUSCULAR HGB CONC 33.7 g/dL (33.0-37.0); MONO # 0.8 K/uL (0.0-0.8); MONO % 6.5 % (0.0-10.0); NEUT # 9.3 K/uL (1.8-7.0); NEUT % 74.7 % (50.0-75.0); RBC 5.19 Mil/uL (4.40-5.90); RED CELL DISTRIBUTION WIDTH 14.1 % (11.5-14.5); WHITE BLOOD COUNT 12.5 K/uL (4.8-10.8)
--- NOTE | 2018-08-01 10:30 | CP.PCM.PN ---
<Alvaro Enciso - Last Filed: 08/01/18 11:28> Subjective - Date & Time of Evaluation Date of Evaluation: 08/01/18 Time of Evaluation: 07:00 - Subjective Subjective: Pt is seen and examined with Dr Resendiz. Pt improved significantly, He feel better and with no pain. Pt state that he had diarrhea yesterday but have improved. He have no complain as per today. He denies fever, chills, chest pain, sob, abd pain, dysuria or polyuria. Objective - Vital Signs/Intake and Output Vital Signs (last 24 hours): Temp Pulse Resp BP Pulse Ox 97.5 F L 79 20 119/74 100 08/01/18 08:01 08/01/18 08:01 08/01/18 08:01 08/01/18 08:01 08/01/18 08:01 - Medications Medications: Current Medications Acetaminophen (Tylenol 325mg Tab) 650 mg PO Q6 PRN PRN Reason: Pain, Mild (1-3) Last Admin: 07/31/18 16:38 Dose: 650 mg Acetaminophen (Tylenol 325mg Tab) 650 mg PO Q6 PRN PRN Reason: Fever >100.4 F Docusate Sodium (Colace) 100 mg PO BID [facility] Last Admin: 08/01/18 08:14 Dose: 100 mg Enoxaparin Sodium (Lovenox) 40 mg SC DAILY [facility] PRN Reason: Protocol Last Admin: 08/01/18 08:13 Dose: 40 mg Vancomycin HCl 1 gm/ Sodium (Chloride) 250 mls @ 166.667 mls/hr IVPB Q12 [facility] PRN Reason: Protocol Last Admin: 08/01/18 08:13 Dose: 166.667 mls/hr Piperacillin Sod/Tazobactam (Sod 3.375 gm/ Sodium Chloride) 100 mls @ 100 mls/ hr IVPB Q8 [facility] PRN Reason: Protocol Last Admin: 08/01/18 08:13 Dose: 100 mls/hr Sodium Chloride (Sodium Chloride 0.9%) 1,000 mls @ 125 mls/hr IV .Q8H [facility] Last Admin: 08/01/18 08:15 Dose: Not Given Ibuprofen (Motrin Tab) 600 mg PO Q6H PRN PRN Reason: Pain, moderate (4-7) Last Admin: 08/01/18 08:14 Dose: 600 mg Ketorolac Tromethamine (Toradol) 30 mg IVP Q6 PRN PRN Reason: Pain, severe (8-10) Last Admin: 07/31/18 09:33 Dose: 30 mg Oxycodone/Acetaminophen (Percocet 5/325 Mg Tab) 1 tab PO Q4 PRN PRN Reason: Pain, moderate (4-7) Stop: 08/03/18 15:03 Sennosides (Senokot Tab) 8.6 mg PO HS [facility] Last Admin: 07/31/18 22:01 Dose: Not Given - Labs Labs: 08/01/18 08:55 07/31/18 05:30 PT 12.4 Seconds (9.8-13.1) 07/31/18 12:01 INR 1.1 07/31/18 12:01 APTT 30.9 Seconds (25.6-37.1) 07/31/18 12:01 - Constitutional Appears: Well, Non-toxic, No Acute Distress - Head Exam Head Exam: ATRAUMATIC, NORMAL INSPECTION, NORMOCEPHALIC - Eye Exam Eye Exam: EOMI, Normal appearance, PERRL Pupil Exam: NORMAL ACCOMODATION, PERRL - ENT Exam ENT Exam: Mucous Membranes Moist, Normal Exam - Neck Exam Neck Exam: Full ROM, Normal Inspection - Respiratory Exam Respiratory Exam: Clear to Ausculation Bilateral, NORMAL BREATHING PATTERN - Cardiovascular Exam Cardiovascular Exam: REGULAR RHYTHM, +S1, +S2 - GI/Abdominal Exam GI & Abdominal Exam: Soft, Normal Bowel Sounds. absent: Tenderness - Extremities Exam Extremities Exam: Full ROM, Normal Capillary Refill, Normal Inspection. absent : Calf Tenderness - Back Exam Back Exam: Full ROM, NORMAL INSPECTION. absent: CVA tenderness (L), CVA tenderness (R) Additional comments: draining tube noted on Right gluteus with discharge bloody/ pus noted on pads. No odor noted, mild tender around the area, but no indurations - Neurological Exam Neurological Exam: Alert, Awake, Oriented x3 - Psychiatric Exam Psychiatric exam: Normal Affect, Normal Mood - Skin Skin Exam: Dry, Intact, Normal Color, Warm Assessment and Plan - Assessment and Plan (Free Text) Assessment: Pt is a 53 yo male with No PMH presented with buttock pain, was admitted for drainage of abscess. S/P I&D day 1 Cellulites /Abscess on Right buttock Pain improved I&D and still draining draining tube noted on the area Afebrile since 17:30 31/07. Vitals improved Plan continue Abx Vanco + Zosyn IV F/U culture Motrin PRN pain moderate ketorolac PRn Sever pain Monitor for fevers and vitals Sepsis Improved Afebrile since 17:30 31/07 Plan Continue abx Monitor vitals Continue Iv fluid Monitor for any acute changes Uncontrolled DM Pt glucose level 212->169 Plan H1AC 7.6 Slide scale Medium Hypoglycemic protocol DVT prophylaxis Lovenox 40 <Sue Resendiz - Last Filed: 08/01/18 17:23> Objective - Vital Signs/Intake and Output Vital Signs (last 24 hours): Temp Pulse Resp BP Pulse Ox 98 F 87 18 105/68 98 08/01/18 16:34 08/01/18 16:34 08/01/18 16:34 08/01/18 16:34 08/01/18 16:34 - Medications Medications: Current Medications Acetaminophen (Tylenol 325mg Tab) 650 mg PO Q6 PRN PRN Reason: Pain, Mild (1-3) Last Admin: 07/31/18 16:38 Dose: 650 mg Acetaminophen (Tylenol 325mg Tab) 650 mg PO Q6 PRN PRN Reason: Fever >100.4 F Docusate Sodium (Colace) 100 mg PO BID [facility] Last Admin: 08/01/18 16:15 Dose: 100 mg Enoxaparin Sodium (Lovenox) 40 mg SC DAILY [facility] PRN Reason: Protocol Last Admin: 08/01/18 08:13 Dose: 40 mg Vancomycin HCl 1 gm/ Sodium (Chloride) 250 mls @ 166.667 mls/hr IVPB Q12 [facility] PRN Reason: Protocol Last Admin: 08/01/18 08:13 Dose: 166.667 mls/hr Piperacillin Sod/Tazobactam (Sod 3.375 gm/ Sodium Chloride) 100 mls @ 100 mls/ hr IVPB Q8 [facility] PRN Reason: Protocol Last Admin: 08/01/18 16:14 Dose: 100 mls/hr Sodium Chloride (Sodium Chloride 0.9%) 1,000 mls @ 125 mls/hr IV .Q8H [facility] Last Admin: 08/01/18 16:15 Dose: Not Given Ibuprofen (Motrin Tab) 600 mg PO Q6H PRN PRN Reason: Pain, moderate (4-7) Last Admin: 08/01/18 14:37 Dose: 600 mg Insulin Human Regular (Humulin R) 0 units SC ACCU-CHECK [facility] PRN Reason: Protocol Last Admin: 08/01/18 16:15 Dose: 2 units Ketorolac Tromethamine (Toradol) 30 mg IVP Q6 PRN PRN Reason: Pain, severe (8-10) Last Admin: 07/31/18 09:33 Dose: 30 mg Oxycodone/Acetaminophen (Percocet 5/325 Mg Tab) 1 tab PO Q4 PRN PRN Reason: Pain, moderate (4-7) Stop: 08/03/18 15:03 Sennosides (Senokot Tab) 8.6 mg PO HS [facility] Last Admin: 07/31/18 22:01 Dose: Not Given - Labs Labs: 08/01/18 08:55 07/31/18 05:30 PT 12.4 Seconds (9.8-13.1) 07/31/18 12:01 INR 1.1 07/31/18 12:01 APTT 30.9 Seconds (25.6-37.1) 07/31/18 12:01 Attending/Attestation - Attestation I have personally seen and examined this patient.: Yes I have fully participated in the care of the patient.: Yes I have reviewed all pertinent clinical information, including history, physical exam and plan: Yes
[2018-08-01] MEDS: Insulin Regular 100 units/ml SC SCH ×3 (12:05→22:30)
[2018-08-01] MEDS ORDERED: Insulin Detemir 100 Units/ml Inj SC SCH (22:00)
[2018-08-02] MEDS: Piperacillin/Tazobact 3.375 GM in Sodium Chloride 0.9% 100 ML IVPB SCH ×2 (01:00→08:20)
[2018-08-02 06:25] LABS: HEMOGLOBIN 13.7 g/dL (12.0-18.0); MEAN CELL VOLUME 83.1 fl (80.0-94.0); MEAN CORPUSCULAR HGB CONC 32.5 g/dL (33.0-37.0); RBC 5.09 Mil/uL (4.40-5.90); WHITE BLOOD COUNT 7.6 K/uL (4.8-10.8)
[2018-08-02 06:36] LABS: BLOOD UREA NITROGEN 10 mg/dl (9-20); CALCIUM 8.6 mg/dL (8.4-10.2); GFR NON-AFRICAN AMERICAN > 60
[2018-08-02] MEDS: Insulin Regular 100 units/ml SC SCH (07:12)
[2018-08-02] MEDS: Sodium Chloride 0.9% 1,000 ML IV SCH (07:25)
[2018-08-02] MEDS: Enoxaparin 40 mg Syringe SC SCH (08:20)
--- NOTE | 2018-08-02 08:22 | CP.PCM.PN ---
Subjective - Date & Time of Evaluation Date of Evaluation: 08/02/18 Time of Evaluation: 08:20 - Subjective Subjective: Surgery: Dr. Shaw Pt seen and examined. No acute overnight events. Pt states he feels a lot better , and his pain has improved significantly. He is tolerating his diet, ambulating and having BMs. Denies fevers, chills. Objective - Vital Signs/Intake and Output Vital Signs (last 24 hours): Temp Pulse Resp BP Pulse Ox 98 F 72 19 105/67 99 08/02/18 00:07 08/02/18 00:07 08/02/18 00:07 08/02/18 00:07 08/02/18 00:07 - Medications Medications: Current Medications Acetaminophen (Tylenol 325mg Tab) 650 mg PO Q6 PRN PRN Reason: Pain, Mild (1-3) Last Admin: 07/31/18 16:38 Dose: 650 mg Acetaminophen (Tylenol 325mg Tab) 650 mg PO Q6 PRN PRN Reason: Fever >100.4 F Docusate Sodium (Colace) 100 mg PO BID [facility] Last Admin: 08/01/18 16:15 Dose: 100 mg Enoxaparin Sodium (Lovenox) 40 mg SC DAILY [facility] PRN Reason: Protocol Last Admin: 08/01/18 08:13 Dose: 40 mg Vancomycin HCl 1 gm/ Sodium (Chloride) 250 mls @ 166.667 mls/hr IVPB Q12 [facility] PRN Reason: Protocol Last Admin: 08/01/18 21:05 Dose: 166.667 mls/hr Piperacillin Sod/Tazobactam (Sod 3.375 gm/ Sodium Chloride) 100 mls @ 100 mls/ hr IVPB Q8 [facility] PRN Reason: Protocol Last Admin: 08/02/18 01:00 Dose: 100 mls/hr Sodium Chloride (Sodium Chloride 0.9%) 1,000 mls @ 125 mls/hr IV .Q8H [facility] Last Admin: 08/02/18 07:25 Dose: Not Given Ibuprofen (Motrin Tab) 600 mg PO Q6H PRN PRN Reason: Pain, moderate (4-7) Last Admin: 08/01/18 14:37 Dose: 600 mg Insulin Human Regular (Humulin R) 0 units SC ACCU-CHECK [facility] PRN Reason: Protocol Last Admin: 08/02/18 07:12 Dose: Not Given Ketorolac Tromethamine (Toradol) 30 mg IVP Q6 PRN PRN Reason: Pain, severe (8-10) Last Admin: 07/31/18 09:33 Dose: 30 mg Metformin HCl (Glucophage) 500 mg PO BID [facility] Oxycodone/Acetaminophen (Percocet 5/325 Mg Tab) 1 tab PO Q4 PRN PRN Reason: Pain, moderate (4-7) Stop: 08/03/18 15:03 Last Admin: 08/01/18 18:51 Dose: 1 tab Sennosides (Senokot Tab) 8.6 mg PO HS [facility] Last Admin: 08/01/18 21:04 Dose: 8.6 mg - Labs Labs: 08/02/18 04:00 08/02/18 05:50 PT 12.4 Seconds (9.8-13.1) 07/31/18 12:01 INR 1.1 07/31/18 12:01 APTT 30.9 Seconds (25.6-37.1) 07/31/18 12:01 - Constitutional Appears: Well, No Acute Distress - Head Exam Head Exam: ATRAUMATIC, NORMOCEPHALIC - ENT Exam ENT Exam: Mucous Membranes Moist - Respiratory Exam Respiratory Exam: NORMAL BREATHING PATTERN - Cardiovascular Exam Cardiovascular Exam: RRR - GI/Abdominal Exam GI & Abdominal Exam: Soft. absent: Tenderness - Neurological Exam Neurological Exam: Alert, Awake, Oriented x3 - Skin Skin Exam: Dry, Warm Assessment and Plan - Assessment and Plan (Free Text) Assessment: 53M s/p I&D of R gluteal abscess; POD#2 Plan: - ok to DC home with PO Augmentin for 7days - liz drain in the incision can be removed next week if it doesn't fall out on it's own - dressings PRN - d/w Dr. Colin Biggs
[2018-08-02 08:23] VITALS: BP 119/78; PULSE 73; RESP 20; TEMP 97.9; O2SAT 98
--- NOTE | 2018-08-02 09:09 | CP.PCM.DIS ---
<Remington ParrishsantosAlvaro - Last Filed: 08/02/18 16:08> Provider - Provider Date of Admission: 07/30/18 21:50 Attending physician: Aaron Eid MD Time Spent in preparation of Discharge (in minutes): 20 Hospital Course - Lab Results Lab Results: Micro Results 07/30/18 18:50 Blood Blood Culture - Preliminary NO GROWTH AFTER 48 HOURS Most Recent Lab Values WBC 7.6 K/uL (4.8-10.8) 08/02/18 04:00 RBC 5.09 Mil/uL (4.40-5.90) 08/02/18 04:00 Hgb 13.7 g/dL (12.0-18.0) 08/02/18 04:00 Hct 42.3 % (35.0-51.0) 08/02/18 04:00 MCV 83.1 fl (80.0-94.0) 08/02/18 04:00 MCH 27.0 pg (27.0-31.0) 08/02/18 04:00 MCHC 32.5 g/dL (33.0-37.0) L 08/02/18 04:00 RDW 14.0 % (11.5-14.5) 08/02/18 04:00 Plt Count 222 K/uL (130-400) 08/02/18 04:00 MPV 8.0 fl (7.2-11.7) 08/01/18 08:55 Neut % (Auto) 74.7 % (50.0-75.0) 08/01/18 08:55 Lymph % (Auto) 16.6 % (20.0-40.0) L 08/01/18 08:55 Robertson % (Auto) 6.5 % (0.0-10.0) 08/01/18 08:55 Eos % (Auto) 1.8 % (0.0-4.0) 08/01/18 08:55 Baso % (Auto) 0.4 % (0.0-2.0) 08/01/18 08:55 Neut # (Auto) 9.3 K/uL (1.8-7.0) H 08/01/18 08:55 Lymph # (Auto) 2.1 K/uL (1.0-4.3) 08/01/18 08:55 Robertson # (Auto) 0.8 K/uL (0.0-0.8) 08/01/18 08:55 Eos # (Auto) 0.2 K/uL (0.0-0.7) 08/01/18 08:55 Baso # (Auto) 0.1 K/uL (0.0-0.2) 08/01/18 08:55 Neutrophils % (Manual) 73 % (42-75) 07/30/18 19:24 Band Neutrophils % 4 % (0-2) H 07/30/18 19:24 Lymphocytes % (Manual) 17 % (20-50) L 07/30/18 19:24 Monocytes % (Manual) 6 % (0-10) 07/30/18 19:24 Smudge Cells Present 07/30/18 19:24 Platelet Estimate Normal (NORMAL) 07/30/18 19:24 Hypochromasia (manual) Slight 07/30/18 19:24 Microcytosis (manual) Slight 07/30/18 19:24 PT 12.4 Seconds (9.8-13.1) 07/31/18 12:01 INR 1.1 07/31/18 12:01 APTT 30.9 Seconds (25.6-37.1) 07/31/18 12:01 pO2 31 mm/Hg (30-55) 07/30/18 20:30 VBG pH 7.43 (7.32-7.43) 07/30/18 20:30 VBG pCO2 36 mmHg (40-60) L 07/30/18 20:30 VBG HCO3 23.9 mmol/L 07/30/18 20:30 VBG Total CO2 25.0 mmol/L (22-28) 07/30/18 20:30 VBG O2 Sat (Calc) 70.4 % (40-65) H 07/30/18 20:30 VBG Base Excess -0.1 mmol/L (0.0-2.0) L 07/30/18 20:30 VBG Potassium 3.6 mmol/L (3.6-5.2) 07/30/18 20:30 Sodium 131.0 mmol/L (132-148) L 07/30/18 20:30 Chloride 101.0 mmol/L (98-107) 07/30/18 20:30 Glucose 212 mg/dL (75-110) H 07/30/18 20:30 Lactate 1.8 mmol/L (0.7-2.1) 07/30/18 20:30 FiO2 21.0 % 07/30/18 20:30 Sodium 138 mmol/l (132-148) 08/02/18 05:50 Potassium 4.3 MMOL/L (3.6-5.0) 08/02/18 05:50 Chloride 107 mmol/L (98-107) 08/02/18 05:50 Carbon Dioxide 24 mmol/L (22-30) 08/02/18 05:50 Anion Gap 11 (10-20) 08/02/18 05:50 BUN 10 mg/dl (9-20) 08/02/18 05:50 Creatinine 0.7 mg/dl (0.8-1.5) L 08/02/18 05:50 Est GFR ( Amer) > 60 08/02/18 05:50 Est GFR (Non-Af Amer) > 60 08/02/18 05:50 POC Glucose (mg/dL) 143 mg/dL (65-110) H 08/02/18 05:21 Random Glucose 152 mg/dL (75-110) H 08/02/18 05:50 Hemoglobin A1c 7.6 % (4.2-6.5) H 07/31/18 07:14 Calcium 8.6 mg/dL (8.4-10.2) 08/02/18 05:50 Total Bilirubin 1.0 mg/dl (0.2-1.3) 07/31/18 05:30 AST 17 U/L (17-59) D 07/31/18 05:30 ALT 24 U/L (21-72) 07/31/18 05:30 Alkaline Phosphatase 65 U/L (38-126) 07/31/18 05:30 Total Protein 6.8 G/DL (6.3-8.2) 07/31/18 05:30 Albumin 3.4 g/dL (3.5-5.0) L 07/31/18 05:30 Globulin 3.4 gm/dL (2.2-3.9) 07/31/18 05:30 Albumin/Globulin Ratio 1.0 (1.0-2.1) 07/31/18 05:30 Venous Blood Potassium 3.6 mmol/L (3.6-5.2) 07/30/18 20:30 Urine Color Yellow (YELLOW) 07/30/18 19:24 Urine Clarity Clear (Clear) 07/30/18 19:24 Urine pH 6.0 (5.0-8.0) 07/30/18 19:24 Ur Specific Dora 1.026 (1.003-1.030) 07/30/18 19:24 Urine Protein 30 mg/dL (NEGATIVE) 07/30/18 19:24 Urine Glucose (UA) >=500 mg/dL (Normal) 07/30/18 19:24 Urine Ketones Trace mg/dL (NEGATIVE) 07/30/18 19:24 Urine Blood Negative (NEGATIVE) 07/30/18 19:24 Urine Nitrate Negative (NEGATIVE) 07/30/18 19:24 Urine Bilirubin Negative (NEGATIVE) 07/30/18 19:24 Urine Urobilinogen 2.0 mg/dL (0.2-1.0) 07/30/18 19:24 Ur Leukocyte Esterase Neg Yudelka/uL (Negative) 07/30/18 19:24 Urine RBC (Auto) 3 /hpf (0-3) 07/30/18 19:24 Urine Microscopic WBC 1 /hpf (0-5) 07/30/18 19:24 Vancomycin Trough < 5.0 ug/mL (5.0-10.0) L 08/01/18 08:55 HIV 1&2 Ag/Ab, 4th Gen Nonreactive (Nonreactive) 07/31/18 07:14 - Hospital Course Hospital Course: Pt is a 53 yo m with no pmh presented to ER due to RIGHT Buttock pain. Pt was admitted for I&D of RIGHT buttock abscess. At admission pt fall into the criteria of Sepsis ( febrile, tackycardic, High WBC count, and source of infection) Pt was started on Vanco and Zosyn. Surgery was consulted, I&D was performed in the ER, 220cc was drained, and draining tube was attached. Pt Vitals were stabilized, pt was afebrile >24h, WBC count resolved, and HR WNL. Pt status improved, chart were reviewed, and final plan was to discharge Pt with PO ABx and follow up with PCP in 1 week, PCP Need to remove draining tube if have not fall off. During admission Pt had uncontrolled DM a HA1c of 7.6. Metformin 500mg BID was started. Case reviewed, Surgery and medical team approve for pt discharge. Medication Clindamycin 300mg Q8H #21 Augmentin 875-125mg Q12h #14 pills Metformin 500mg BID #60 Pt need to follow up with PCP IN 1 WEEK to remove DRAINING TUBE IF ITS STILL ATTACHED Discharge Exam - Head Exam Head Exam: ATRAUMATIC, NORMOCEPHALIC Discharge Plan - Discharge Medications Prescriptions: Amoxicillin/Clavulanate [Augmentin 875 MG-125 MG] 1 tab PO Q12H #14 tab Clindamycin [Cleocin] 300 mg PO Q8H #21 cap Ibuprofen [Motrin Tab] 600 mg PO Q6H PRN #20 tab PRN Reason: Pain, Moderate (4-7) metFORMIN [glucOPHAGE] 500 mg PO BID #60 tab - Follow Up Plan Condition: FAIR Disposition: HOME/ ROUTINE Instructions: Abscess Incision and Drainage, Cellulitis (DC) Additional Instructions: Drainage to fall out by itself or stitches can be removed at home. F/U with [facility], call for appt for hospital DC f/u next week Referrals: [facility] [Outside] Edy Shaw MD [Staff Provider] - <Sue Resendiz - Last Filed: 08/02/18 17:50> Provider - Provider Date of Admission: 07/30/18 21:50 Attending physician: Aaron Eid MD Hospital Course - Lab Results Lab Results: Micro Results 07/31/18 16:00 Abscess - Buttock-Right Gram Stain - Final 07/30/18 18:50 Blood Blood Culture - Preliminary NO GROWTH AFTER 48 HOURS Most Recent Lab Values WBC 7.6 K/uL (4.8-10.8) 08/02/18 04:00 RBC 5.09 Mil/uL (4.40-5.90) 08/02/18 04:00 Hgb 13.7 g/dL (12.0-18.0) 08/02/18 04:00 Hct 42.3 % (35.0-51.0) 08/02/18 04:00 MCV 83.1 fl (80.0-94.0) 08/02/18 04:00 MCH 27.0 pg (27.0-31.0) 08/02/18 04:00 MCHC 32.5 g/dL (33.0-37.0) L 08/02/18 04:00 RDW 14.0 % (11.5-14.5) 08/02/18 04:00 Plt Count 222 K/uL (130-400) 08/02/18 04:00 MPV 8.0 fl (7.2-11.7) 08/01/18 08:55 Neut % (Auto) 74.7 % (50.0-75.0) 08/01/18 08:55 Lymph % (Auto) 16.6 % (20.0-40.0) L 08/01/18 08:55 Robertson % (Auto) 6.5 % (0.0-10.0) 08/01/18 08:55 Eos % (Auto) 1.8 % (0.0-4.0) 08/01/18 08:55 Baso % (Auto) 0.4 % (0.0-2.0) 08/01/18 08:55 Neut # (Auto) 9.3 K/uL (1.8-7.0) H 08/01/18 08:55 Lymph # (Auto) 2.1 K/uL (1.0-4.3) 08/01/18 08:55 Robertson # (Auto) 0.8 K/uL (0.0-0.8) 08/01/18 08:55 Eos # (Auto) 0.2 K/uL (0.0-0.7) 08/01/18 08:55 Baso # (Auto) 0.1 K/uL (0.0-0.2) 08/01/18 08:55 Neutrophils % (Manual) 73 % (42-75) 07/30/18 19:24 Band Neutrophils % 4 % (0-2) H 07/30/18 19:24 Lymphocytes % (Manual) 17 % (20-50) L 07/30/18 19:24 Monocytes % (Manual) 6 % (0-10) 07/30/18 19:24 Smudge Cells Present 07/30/18 19:24 Platelet Estimate Normal (NORMAL) 07/30/18 19:24 Hypochromasia (manual) Slight 07/30/18 19:24 Microcytosis (manual) Slight 07/30/18 19:24 PT 12.4 Seconds (9.8-13.1) 07/31/18 12:01 INR 1.1 07/31/18 12:01 APTT 30.9 Seconds (25.6-37.1) 07/31/18 12:01 pO2 31 mm/Hg (30-55) 07/30/18 20:30 VBG pH 7.43 (7.32-7.43) 07/30/18 20:30 VBG pCO2 36 mmHg (40-60) L 07/30/18 20:30 VBG HCO3 23.9 mmol/L 07/30/18 20:30 VBG Total CO2 25.0 mmol/L (22-28) 07/30/18 20:30 VBG O2 Sat (Calc) 70.4 % (40-65) H 07/30/18 20:30 VBG Base Excess -0.1 mmol/L (0.0-2.0) L 07/30/18 20:30 VBG Potassium 3.6 mmol/L (3.6-5.2) 07/30/18 20:30 Sodium 131.0 mmol/L (132-148) L 07/30/18 20:30 Chloride 101.0 mmol/L (98-107) 07/30/18 20:30 Glucose 212 mg/dL (75-110) H 07/30/18 20:30 Lactate 1.8 mmol/L (0.7-2.1) 07/30/18 20:30 FiO2 21.0 % 07/30/18 20:30 Sodium 138 mmol/l (132-148) 08/02/18 05:50 Potassium 4.3 MMOL/L (3.6-5.0) 08/02/18 05:50 Chloride 107 mmol/L (98-107) 08/02/18 05:50 Carbon Dioxide 24 mmol/L (22-30) 08/02/18 05:50 Anion Gap 11 (10-20) 08/02/18 05:50 BUN 10 mg/dl (9-20) 08/02/18 05:50 Creatinine 0.7 mg/dl (0.8-1.5) L 08/02/18 05:50 Est GFR ( Amer) > 60 08/02/18 05:50 Est GFR (Non-Af Amer) > 60 08/02/18 05:50 POC Glucose (mg/dL) 143 mg/dL (65-110) H 08/02/18 05:21 Random Glucose 152 mg/dL (75-110) H 08/02/18 05:50 Hemoglobin A1c 7.6 % (4.2-6.5) H 07/31/18 07:14 Calcium 8.6 mg/dL (8.4-10.2) 08/02/18 05:50 Total Bilirubin 1.0 mg/dl (0.2-1.3) 07/31/18 05:30 AST 17 U/L (17-59) D 07/31/18 05:30 ALT 24 U/L (21-72) 07/31/18 05:30 Alkaline Phosphatase 65 U/L (38-126) 07/31/18 05:30 Total Protein 6.8 G/DL (6.3-8.2) 07/31/18 05:30 Albumin 3.4 g/dL (3.5-5.0) L 07/31/18 05:30 Globulin 3.4 gm/dL (2.2-3.9) 07/31/18 05:30 Albumin/Globulin Ratio 1.0 (1.0-2.1) 07/31/18 05:30 Venous Blood Potassium 3.6 mmol/L (3.6-5.2) 07/30/18 20:30 Urine Color Yellow (YELLOW) 07/30/18 19:24 Urine Clarity Clear (Clear) 07/30/18 19:24 Urine pH 6.0 (5.0-8.0) 07/30/18 19:24 Ur Specific Dora 1.026 (1.003-1.030) 07/30/18 19:24 Urine Protein 30 mg/dL (NEGATIVE) 07/30/18 19:24 Urine Glucose (UA) >=500 mg/dL (Normal) 07/30/18 19:24 Urine Ketones Trace mg/dL (NEGATIVE) 07/30/18 19:24 Urine Blood Negative (NEGATIVE) 07/30/18 19:24 Urine Nitrate Negative (NEGATIVE) 07/30/18 19:24 Urine Bilirubin Negative (NEGATIVE) 07/30/18 19:24 Urine Urobilinogen 2.0 mg/dL (0.2-1.0) 07/30/18 19:24 Ur Leukocyte Esterase Neg Yudelka/uL (Negative) 07/30/18 19:24 Urine RBC (Auto) 3 /hpf (0-3) 07/30/18 19:24 Urine Microscopic WBC 1 /hpf (0-5) 07/30/18 19:24 Vancomycin Trough < 5.0 ug/mL (5.0-10.0) L 08/01/18 08:55 HIV 1&2 Ag/Ab, 4th Gen Nonreactive (Nonreactive) 07/31/18 07:14 Attending/Attestation - Attestation I have personally seen and examined this patient.: Yes I have fully participated in the care of the patient.: Yes I have reviewed all pertinent clinical information, including history, physical exam and plan: Yes Notes (Text): Additional Note: Dx: 1.Right Gluteal Abscess s/p Incision and DRainage 2. DM type II -PO Augmentin and Clinda x 1 wk - ff up at the [facility] in 1 wk
--- NOTE | 2018-08-03 01:16 | OP ---
PROCEDURE DATE: 07/31/2018 PREOPERATIVE DIAGNOSIS: Right gluteal abscess. POSTOPERATIVE DIAGNOSIS: Right gluteal abscess. PROCEDURE: Incision and drainage of right gluteal abscess. SURGEON: Dr. Edy Shaw MD SENIOR NURSE MANAGER: Dr. Biggs. ANESTHESIA: General, Dr. Pond. DESCRIPTION OF OPERATION: With the patient anesthetized, he was placed in the lithotomy stirrups, the buttocks and perineum were prepped and draped in the usual sterile manner. The patient was noted to have an area of induration overlying the right ischial prominence and incision and was made in this area and deepened down through the superficial fascia with drainage of a large amount of foul-smelling reid pus. Culture and sensitivity was sent and the abscess cavity was noted to extend in an upward direction towards the rectum although no rectal wall induration was appreciated on bimanual exam. As well there had been a suggestion of a foreign body such as a needle in the area on preoperative imaging and no foreign body could be appreciated. The abscess cavity was broken up with multiple passes of gauze and irrigated and a quarter inch Stephanie drain was positioned deep into the abscess cavity, sutured to the edge of the skin with a nylon suture. Dry sterile dressing was applied. The patient tolerated the procedure well and transferred to recovery room in stable condition. Estimated blood loss for the procedure was 5 mL. Edy Shaw MD
== END 2018-08-02 11:01 | disposition home or self-care (01) | DRG 854 ==
LOC: H.ER 18:07 → H.ERHOLD 21:50 → H.MEDSURG1 23:02
PROVIDERS: ADMIT Internal Medicine; ATTEND Internal Medicine
PROC: 0J990ZZ Drainage of Buttock Subcutaneous Tissue and Fascia, Open Approach (ICD-10-PCS; principal; 2018-07-31 13:00)
DX: A41.9 Sepsis, unspecified organism (principal); L02.31 Cutaneous abscess of buttock; E11.65 Type 2 diabetes mellitus with hyperglycemia; K40.20 Bilateral inguinal hernia, without obstruction or gangrene, not specified as recurrent; Z91.018 Allergy to other foods

== ENCOUNTER 2018-09-19 15:10 | Emergency (ER) | payer MEDICAID, OTHER ==
[2018-09-19 15:22] VITALS: BP 141/92; PULSE 90; RESP 18; TEMP 98.3; O2SAT 100
[2018-09-19] MEDS ORDERED: Lidocaine 1% Inj (20ml) ONE (15:42)
[2018-09-19] MEDS ORDERED: Tdap Vaccine 0.5 ml Vial (10-64 yrs) IM ONE ×2 (16:36→17:11)
[2018-09-19] MEDS ORDERED: Lidocaine 1% (10 ml) Inj INFIL STA (16:36)
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
== END 2018-09-19 17:20 | disposition home or self-care (01) ==
LOC: H.ER 15:10
DX: S01.511A Laceration without foreign body of lip, initial encounter (principal); W22.8XXA Striking against or struck by other objects, initial encounter; Y92.89 Other specified places as the place of occurrence of the external cause; Z79.84 Long term (current) use of oral hypoglycemic drugs